=== PATIENT | male | born 1965 | race Hispanic/Latino ===

== ENCOUNTER → 2020-12-14 | Outpatient (CLI) | payer BC | END | disposition home or self-care (01) | LOC: SHCH 15:12 | PROVIDERS: ATTEND Internal Medicine Cardiovascular Disease | DX: I34.0 Nonrheumatic mitral (valve) insufficiency (principal); I21.3 ST elevation (STEMI) myocardial infarction of unspecified site; I10 Essential (primary) hypertension; E78.5 Hyperlipidemia, unspecified; E11.9 Type 2 diabetes mellitus without complications; R55 Syncope and collapse | CPT/HCPCS: 93306; 93356 ==